=== PATIENT | male | born 1960 | race Caucasian/White ===

== ENCOUNTER 2019-05-28 16:32 | Inpatient (IN) | payer BC, OTHER ==
[~2019-05-28] VITALS: Ht 175.3 cm; Wt 82.0 kg
[~2019-05-28 16:32] MED LIST: ALBU2.5V3 NEB; AMIN30LI GTB; ASC500 GTB; BISA10SU55 RC; CELE200C GTB; CHLO473M4 MM; CRAN3875 GTB; DIGO125T GTB; DOCU-144 GTB; ENOX40DI14 SC; FERR220S13 GTB; GABA300C16 GTB; MAGN400O19 GTB; METH10TA2 GTB; MIDO5TAB GTB; MULTI GTB; NA P133E3 RC; ONDA4TAB8 GTB; OXYC20TA41 GTB; THIA100T56 GTB
[2019-05-28] MEDS ORDERED: SOD CHLORIDE 0.9% 500 ML IV STA (16:51)
[2019-05-28] MEDS ORDERED: ONDANSETRON 4 MG INJ IV STA (16:51)
[2019-05-28 16:56] VITALS: Ht 175.3 cm; Wt 82.0 kg
[2019-05-28] MEDS ORDERED: LORAZEPAM 2 MG INJ IV ONE (18:30)
[2019-05-28] MEDS ORDERED: KETOROLAC 15 MG INJ IV STA (18:30)
[2019-05-28] MEDS ORDERED: ONDANSETRON 4 MG INJ IV PRN (21:00)
[2019-05-28] MEDS ORDERED: NACL 0.9% 3 ML SYG IV SCH (21:00)
[2019-05-28] MEDS: NA PHOSPHATE/BIPHOS 133 ML ENEMA PR ONE (21:00)
[2019-05-28 23:59] VITALS: RESP 28
[2019-05-29] VITALS (18 sets, daily range): BP systolic 94–115; BP diastolic 55–79; PULSE 60–101; RESP 12–32
[2019-05-29] MEDS: DEXTROSE 5%-0.45% NACL 1,000 ML IV SCH ×3 (01:38→15:26)
[2019-05-29] MEDS: FAMOTIDINE 20 MG INJ IV SCH ×3 (01:39→20:24)
[2019-05-29] MEDS: NA PHOSPHATE/BIPHOS 133 ML ENEMA PR ONE (01:39)
[2019-05-29] MEDS: HEPARIN 5,000 UNIT/1 ML VIAL SC SCH ×3 (02:01→20:32)
[2019-05-29] MEDS ORDERED: KETOROLAC 15 MG INJ IV ONE (02:49)
[2019-05-29] MEDS: ALBUTEROL 0.083% (NEB) 2.5 MG/3 ML AMP NEB PRN ×3 (04:42→22:21)
[2019-05-29] MEDS: LORAZEPAM 2 MG INJ IV PRN ×2 (11:21→18:36)
[2019-05-29] MEDS: KETOROLAC 15 MG INJ IV PRN ×2 (11:22→17:28)
[2019-05-29] MEDS ORDERED: NA PHOSPHATE/BIPHOS 133 ML ENEMA PR ONE (11:30)
[2019-05-29] MEDS ORDERED: NA PHOSPHATE/BIPHOS 133 ML ENEMA PR PRN (11:30)
[2019-05-29] MEDS: METOCLOPRAMIDE 10 MG INJ IV SCH ×3 (11:50→23:29)
[2019-05-29] MEDS: LACTULOSE 30ML CUP PO SCH ×4 (17:28→23:30)
[2019-05-29] MEDS ORDERED: MINERAL OIL 133 ML ENEMA PR ONE (18:00)
[2019-05-30] VITALS (17 sets, daily range): BP systolic 101–155; BP diastolic 69–87; PULSE 77–90; RESP 12–22
[2019-05-30] MEDS: KETOROLAC 15 MG INJ IV PRN ×2 (00:57→19:48)
[2019-05-30] MEDS: LORAZEPAM 2 MG INJ IV PRN ×3 (03:49→22:07)
[2019-05-30] MEDS: DEXTROSE 5%-0.45% NACL 1,000 ML IV SCH ×2 (03:52→20:51)
[2019-05-30] MEDS: METOCLOPRAMIDE 10 MG INJ IV SCH ×3 (05:22→17:09)
[2019-05-30] MEDS: BALSAM PERU/CASTOR OIL 60 GM TUBE TOP SCH ×2 (08:41→20:02)
[2019-05-30] MEDS: FAMOTIDINE 20 MG INJ IV SCH ×2 (08:41→19:48)
[2019-05-30] MEDS: HEPARIN 5,000 UNIT/1 ML VIAL SC SCH ×2 (08:45→19:58)
[2019-05-30] MEDS: ALBUTEROL 0.083% (NEB) 2.5 MG/3 ML AMP NEB PRN ×2 (09:01→15:50)
[2019-05-30] MEDS: PIPER-TAZO 3.375 GM IV (PMX) 100 ML IVPB SCH (19:48)
[2019-05-30] MEDS: LACTULOSE 30ML CUP GTB SCH (20:02)
[2019-05-31] VITALS (17 sets, daily range): BP systolic 97–117; BP diastolic 65–76; PULSE 72–89; RESP 12–20
[2019-05-31] MEDS: METOCLOPRAMIDE 10 MG INJ IV SCH ×2 (00:38→05:19)
[2019-05-31] MEDS: PIPER-TAZO 3.375 GM IV (PMX) 100 ML IVPB SCH ×5 (00:38→23:08)
[2019-05-31] MEDS ORDERED: METHADONE (1 MG/ML 5 ML PO UD SYG) GTB ONE (01:00)
[2019-05-31] MEDS: FAMOTIDINE 20 MG INJ IV SCH ×2 (08:52→22:32)
[2019-05-31] MEDS: LACTULOSE 30ML CUP GTB SCH (08:52)
[2019-05-31] MEDS: BALSAM PERU/CASTOR OIL 60 GM TUBE TOP SCH ×2 (08:53→22:32)
[2019-05-31] MEDS: HEPARIN 5,000 UNIT/1 ML VIAL SC SCH ×2 (09:01→21:00)
[2019-05-31] MEDS ORDERED: BARIUM SULFATE 0.1% 450 ML BTL (VOLUMEN) PO ONE ×3 (13:51)
[2019-05-31] MEDS ORDERED: IOHEXOL 350MG/ML 50 ML BTL ONE (13:57)
[2019-05-31] MEDS ORDERED: IOHEXOL 100 ML ONE (13:57)
[2019-05-31] MEDS: KETOROLAC 15 MG INJ IV PRN (14:08)
[2019-05-31] MEDS: LORAZEPAM 2 MG INJ IV PRN (14:15)
[2019-05-31] MEDS ORDERED: GLUCAGON 1 MG INJ ONE (14:25)
[2019-05-31] MEDS ORDERED: ONDANSETRON 4 MG INJ ONE (14:25)
[2019-05-31] MEDS: METHYLNALTREXONE 12 MG/0.6 ML VIAL SC SCH (15:00)
[2019-05-31] MEDS: DEXTROSE 5%-0.45% NACL 1,000 ML IV SCH (15:40)
[2019-05-31] MEDS ORDERED: ONDANSETRON 4 MG INJ IV STA (16:49)
[2019-05-31] MEDS ORDERED: GLUCAGON 1 MG INJ IV ONE (17:00)
[2019-05-31] MEDS: ALBUTEROL 0.083% (NEB) 2.5 MG/3 ML AMP NEB PRN (19:27)
[2019-06-01] VITALS (18 sets, daily range): BP systolic 94–128; BP diastolic 64–79; PULSE 73–98; RESP 12–20
[2019-06-01] MEDS: PIPER-TAZO 3.375 GM IV (PMX) 100 ML IVPB SCH (05:28)
[2019-06-01] MEDS: FAMOTIDINE 20 MG INJ IV SCH ×2 (09:57→20:44)
[2019-06-01] MEDS: BALSAM PERU/CASTOR OIL 60 GM TUBE TOP SCH ×2 (10:02→20:45)
[2019-06-01] MEDS: HEPARIN 5,000 UNIT/1 ML VIAL SC SCH ×2 (10:21→20:59)
[2019-06-01] MEDS ORDERED: MINERAL OIL 133 ML ENEMA PR ONE (12:30)
[2019-06-01] MEDS: MEROPENEM 500MG/50 ML (PMX) 50 ML IVPB SCH ×2 (13:16→20:44)
[2019-06-02] VITALS (17 sets, daily range): BP systolic 88–108; BP diastolic 63–77; PULSE 71–77; RESP 12–21
[2019-06-02] MEDS: ALBUTEROL 0.083% (NEB) 2.5 MG/3 ML AMP NEB PRN ×2 (00:01→10:54)
[2019-06-02] MEDS: HEPARIN 5,000 UNIT/1 ML VIAL SC SCH ×2 (09:00→21:58)
[2019-06-02] MEDS: MEROPENEM 500MG/50 ML (PMX) 50 ML IVPB SCH ×2 (09:00→21:46)
[2019-06-02] MEDS: BALSAM PERU/CASTOR OIL 60 GM TUBE TOP SCH ×2 (09:00→21:46)
[2019-06-02] MEDS: FAMOTIDINE 20 MG INJ IV SCH ×2 (09:00→21:46)
[2019-06-02] MEDS: LORAZEPAM 2 MG INJ IV PRN ×2 (16:11→21:47)
[2019-06-02] MEDS: METHYLNALTREXONE 12 MG/0.6 ML VIAL SC SCH (16:17)
[2019-06-03] VITALS (16 sets, daily range): BP systolic 93–114; BP diastolic 65–76; PULSE 75–88; RESP 12–21
[2019-06-03] MEDS: LORAZEPAM 2 MG INJ IV PRN ×3 (06:30→14:58)
[2019-06-03] MEDS: MEROPENEM 500MG/50 ML (PMX) 50 ML IVPB SCH ×2 (08:33→20:35)
[2019-06-03] MEDS: FAMOTIDINE 20 MG INJ IV SCH ×2 (08:33→20:35)
[2019-06-03] MEDS: ASCORBIC ACID 500 MG TAB GTB SCH (08:33)
[2019-06-03] MEDS: FERROUS SULFATE 60 MG/ML 5ML CUP GTB SCH ×2 (08:33→20:35)
[2019-06-03] MEDS: POLYETHYLENE GLYCOL 17 GM PACKET PO SCH (08:33)
[2019-06-03] MEDS: BALSAM PERU/CASTOR OIL 60 GM TUBE TOP SCH ×2 (08:34→20:36)
[2019-06-03] MEDS: HEPARIN 5,000 UNIT/1 ML VIAL SC SCH ×2 (08:58→20:42)
[2019-06-03] MEDS ORDERED: LACTULOSE 30ML CUP GTB PRN (14:00)
[2019-06-03] MEDS ORDERED: SOD CHLORIDE 0.9% 500 ML IV ONE (21:30)
[2019-06-04] VITALS (17 sets, daily range): BP systolic 94–125; BP diastolic 68–77; PULSE 86–98; RESP 12–20
[2019-06-04] MEDS: LORAZEPAM 2 MG INJ IV PRN ×2 (01:17→09:10)
[2019-06-04] MEDS: FERROUS SULFATE 60 MG/ML 5ML CUP GTB SCH ×2 (09:10→21:30)
[2019-06-04] MEDS: FAMOTIDINE 20 MG INJ IV SCH ×2 (09:10→21:00)
[2019-06-04] MEDS: POLYETHYLENE GLYCOL 17 GM PACKET PO SCH (09:10)
[2019-06-04] MEDS: ASCORBIC ACID 500 MG TAB GTB SCH (09:10)
[2019-06-04] MEDS: MEROPENEM 500MG/50 ML (PMX) 50 ML IVPB SCH ×2 (09:10→21:00)
[2019-06-04] MEDS: BALSAM PERU/CASTOR OIL 60 GM TUBE TOP SCH ×2 (09:11→21:31)
[2019-06-04] MEDS: HEPARIN 5,000 UNIT/1 ML VIAL SC SCH ×2 (09:23→21:36)
[2019-06-04] MEDS ORDERED: NA PHOSPHATE/BIPHOS 133 ML ENEMA PR ONE (12:30)
[2019-06-04] MEDS: METHYLNALTREXONE 12 MG/0.6 ML VIAL SC SCH ×2 (15:00→18:24)
[2019-06-04] MEDS ORDERED: ALBUMIN HUMAN 25% 100 ML IV ONE (15:30)
[2019-06-05] VITALS (12 sets, daily range): BP systolic 97–111; BP diastolic 72–78; PULSE 94–97; RESP 18–23
[2019-06-05] MEDS: MEROPENEM 500MG/50 ML (PMX) 50 ML IVPB SCH (09:00)
[2019-06-05] MEDS: FAMOTIDINE 20 MG INJ IV SCH (09:00)
[2019-06-05] MEDS: ASCORBIC ACID 500 MG TAB GTB SCH (09:30)
[2019-06-05] MEDS: POLYETHYLENE GLYCOL 17 GM PACKET PO SCH (09:50)
[2019-06-05] MEDS: FERROUS SULFATE 60 MG/ML 5ML CUP GTB SCH (09:50)
[2019-06-05] MEDS: BALSAM PERU/CASTOR OIL 60 GM TUBE TOP SCH (09:51)
[2019-06-05] MEDS: HEPARIN 5,000 UNIT/1 ML VIAL SC SCH (10:17)
== END 2019-06-05 17:28 | DRG 388 ==
LOC: E/R 16:32 → TEL 19:14
PROVIDERS: ADMIT Internal Medicine; ATTEND Family Medicine
PROC: 5A1955Z Respiratory Ventilation, Greater than 96 Consecutive Hours (ICD-10-PCS; principal; 2019-05-28)
DX: K56.7 Ileus, unspecified (principal); N18.6 End stage renal disease; Z99.11 Dependence on respirator [ventilator] status; G93.40 Encephalopathy, unspecified; J96.10 Chronic respiratory failure, unspecified whether with hypoxia or hypercapnia; R13.10 Dysphagia, unspecified; I48.0 Paroxysmal atrial fibrillation; K59.00 Constipation, unspecified; G89.29 Other chronic pain; D63.8 Anemia in other chronic diseases classified elsewhere; F41.9 Anxiety disorder, unspecified; F32.9 Major depressive disorder, single episode, unspecified; E86.0 Dehydration; Z79.02 Long term (current) use of antithrombotics/antiplatelets; Z99.2 Dependence on renal dialysis
CPT/HCPCS: 36415; 36600; 71045; 74018; 74176; 74177; 80048; 80053; 82803; 83540; 83690; 83735; 84484; 85025; 85610; 85730; 86850; 86900; 86901; 87070; 87081; 92507; 92523; 94002; 94003; 94640; 94664; 96374; 96375; J1610; J1644; J1885; J2060; J2185; J2405; J2543; J2765; J7040; J7042; P9047; Q9967